=== PATIENT | male | born 1985 | race African-American/Black ===

== ENCOUNTER 2018-12-09 11:04 | Emergency (ER) | payer OTHER ==
[2018-12-09] MEDS: CEFTRIAXONE 1 GM INJ IM (11:47)
[2018-12-09] MEDS: LIDOCAINE 1% (MPF) 5 ML VIAL INJ (11:47)
== END 2018-12-09 12:08 | disposition home or self-care (01) ==
LOC: FTE 11:04
DX: K08.9 Disorder of teeth and supporting structures, unspecified (principal)
CPT/HCPCS: 96372; 99284-25